=== PATIENT | male | born 1955 | race Two or more races ===

== ENCOUNTER → 2017-07-30 | Emergency (ER) | payer OTHER ==
[~2017-07-30] MED LIST: LIPITOR20 MG; LIPITOR20 MG PO; LIPITOR40 MG; PAXIL20 MG PO; PROVENTIL HFA6.7 GM IH; QVAR8.7 G1 IH; TUSSIONEX PENNKI5 ML PO
== END | disposition left against medical advice (07) ==
LOC: ER 10:53
DX: Z53.20 Procedure and treatment not carried out because of patient's decision for unspecified reasons (principal)

== ENCOUNTER → 2017-09-25 | Emergency (ER) | payer OTHER ==
[~2017-09-25] VITALS: Ht 167.6 cm; Wt 87.1 kg
[~2017-09-25] MED LIST changes: +MUCINEX DM ER1 EAC1 PO; +SYMBICORT 16010.2 GM IH; +TESSALON PERLE100 MG PO; +ZITHROMAX500 MG PO
== END | disposition home or self-care (01) ==
LOC: ER 03:53
DX: J06.9 Acute upper respiratory infection, unspecified (principal)

== ENCOUNTER → 2018-01-06 | Emergency (ER) | payer OTHER ==
[~2018-01-06] VITALS: Ht 170.2 cm; Wt 88.0 kg
== END | disposition left against medical advice (07) ==
LOC: ER 02:19
DX: Z53.20 Procedure and treatment not carried out because of patient's decision for unspecified reasons (principal)

== ENCOUNTER 2018-04-24 00:57 | Emergency (ER) | payer OTHER ==
[~2018-04-24] VITALS: Ht 167.6 cm; Wt 86.2 kg
[2018-04-24] MEDS ORDERED: ZYNCOF 20-400120 ML PO (03:16)
[2018-04-24] MEDS ORDERED: SYMBICORT 16010.2 GM IH (03:16)
[2018-04-24] MEDS ORDERED: ALBUTEROL2.5 MG/3 M IH (03:16)
== END 2018-04-24 03:25 | disposition home or self-care (01) ==
LOC: ER 00:57
DX: J40 Bronchitis, not specified as acute or chronic (principal)

== ENCOUNTER → 2019-08-23 | Emergency (ER) | payer OTHER ==
[~2019-08-23] VITALS: Ht 167.6 cm; Wt 83.9 kg
[~2019-08-23] MED LIST changes: +ALBUTEROL2.5 MG/3 M IH; +KETO10TA2 PO; +ZYNCOF 20-400120 ML PO
== END | disposition home or self-care (01) ==
LOC: ER 00:04
DX: S46.812A Strain of other muscles, fascia and tendons at shoulder and upper arm level, left arm, initial encounter (principal); X50.0XXA Overexertion from strenuous movement or load, initial encounter; Y93.73 Activity, racquet and hand sports; Y92.89 Other specified places as the place of occurrence of the external cause; Y99.8 Other external cause status

== ENCOUNTER 2019-12-20 09:24 | Outpatient (CLI) | payer OTHER | END 2019-12-20 09:38 | disposition home or self-care (01) | LOC: SONOGRAMA 09:24 → MAMO-SONO 09:45 | PROVIDERS: ATTEND Urology | DX: R97.20 Elevated prostate specific antigen [PSA] (principal) ==

== ENCOUNTER 2020-03-25 07:16 | Outpatient (CLI) | payer OTHER | END 2020-03-25 07:30 | disposition home or self-care (01) | LOC: TOM 07:16 | PROVIDERS: ATTEND Urology | DX: C61 Malignant neoplasm of prostate (principal) | CPT/HCPCS: 72194; Q9965 ==

== ENCOUNTER 2021-06-18 08:08 | Outpatient (CLI) | payer OTHER | END 2021-06-18 08:32 | disposition home or self-care (01) | LOC: NUCLEAR 08:08 | PROVIDERS: ATTEND Urology | DX: C61 Malignant neoplasm of prostate (principal) | CPT/HCPCS: 78803; A9503 ==

== ENCOUNTER 2021-06-18 11:19 | Outpatient (CLI) | payer OTHER | END 2021-06-18 11:23 | disposition home or self-care (01) | LOC: TOM 11:19 | PROVIDERS: ATTEND Urology | DX: C61 Malignant neoplasm of prostate (principal) ==

== ENCOUNTER 2021-07-09 06:09 | Outpatient (CLI) | payer OTHER | END 2021-07-09 06:11 | disposition home or self-care (01) | LOC: LAB 06:09 | PROVIDERS: ATTEND Urology | DX: I11.9 Hypertensive heart disease without heart failure (principal); C61 Malignant neoplasm of prostate ==

== ENCOUNTER 2021-08-03 11:15 | Inpatient (IN) | payer OTHER ==
[~2021-08-03] VITALS: Ht 167.6 cm; Wt 83.9 kg
[2021-08-03] MEDS ORDERED: PAXIL20 MG PO (14:42)
[2021-08-26] MEDS ORDERED: ATORVASTATIN CA10 MG PO (08:14)
== END 2021-08-28 14:25 | disposition home or self-care (01) | DRG 708 ==
LOC: SURH 08-05 11:45 → O/R 08-26 05:30 → SURH 08-26 05:30 → O/R 08-26 10:03 → SURH 08-26 11:45
PROVIDERS: ADMIT Urology; ATTEND Urology
PROC: 07TC0ZZ Resection of Pelvis Lymphatic, Open Approach (ICD-10-PCS; 2021-08-26)
PROC: 0VT30ZZ Resection of Bilateral Seminal Vesicles, Open Approach (ICD-10-PCS; 2021-08-26)
PROC: 0VT00ZZ Resection of Prostate, Open Approach (ICD-10-PCS; principal; 2021-08-26 07:00)
DX: C61 Malignant neoplasm of prostate (principal); Z20.822 Contact with and (suspected) exposure to COVID-19

== ENCOUNTER 2021-09-15 03:11 | Emergency (ER) | payer OTHER ==
[~2021-09-15] VITALS: Ht 167.6 cm; Wt 83.0 kg
[~2021-09-15 03:11] MED LIST changes: +ATORVASTATIN CA10 MG PO
== END 2021-09-15 05:10 | disposition home or self-care (01) ==
LOC: ER 03:11
DX: N39.0 Urinary tract infection, site not specified (principal); R33.9 Retention of urine, unspecified

== ENCOUNTER 2021-09-20 14:22 | Emergency (ER) | payer OTHER ==
[~2021-09-20] VITALS: Ht 167.6 cm; Wt 83.0 kg
== END 2021-09-20 16:19 | disposition home or self-care (01) ==
LOC: ER 14:22
DX: Z46.6 Encounter for fitting and adjustment of urinary device (principal)

== ENCOUNTER 2021-09-26 14:55 | Emergency (ER) | payer OTHER ==
[~2021-09-26] VITALS: Ht 167.6 cm; Wt 82.6 kg
[2021-09-26] MEDS ORDERED: LIPITOR40 M1 (15:17)
== END 2021-09-26 17:48 | disposition home or self-care (01) ==
LOC: ER 14:55
DX: R33.9 Retention of urine, unspecified (principal)

== ENCOUNTER 2021-10-02 11:55 | Emergency (ER) | payer OTHER ==
[~2021-10-02] VITALS: Ht 167.6 cm; Wt 81.6 kg
[~2021-10-02 11:55] MED LIST changes: +LIPITOR40 M1
== END 2021-10-02 14:42 | disposition home or self-care (01) ==
LOC: ER 11:55
DX: R33.9 Retention of urine, unspecified (principal)

== ENCOUNTER 2021-10-28 07:28 | Outpatient (CLI) | payer OTHER | END 2021-10-28 07:37 | disposition home or self-care (01) | LOC: LAB 07:28 | PROVIDERS: ATTEND Urology | DX: I10 Essential (primary) hypertension (principal); C61 Malignant neoplasm of prostate; D68.8 Other specified coagulation defects ==

== ENCOUNTER 2021-11-04 09:30 | Day surgery (SDC) | payer OTHER | END 2021-11-04 17:45 | disposition home or self-care (01) | LOC: CIR.AMB 09:30 | PROVIDERS: ATTEND Urology | DX: N32.0 Bladder-neck obstruction (principal); R31.0 Gross hematuria; R33.9 Retention of urine, unspecified; Z86.16 Personal history of COVID-19; F32.A Depression, unspecified; Z20.822 Contact with and (suspected) exposure to COVID-19 ==

== ENCOUNTER → 2022-02-24 | Outpatient (CLI) | payer OTHER | END | disposition home or self-care (01) | LOC: NUCLEAR 07:16 | PROVIDERS: ATTEND Urology | DX: C61 Malignant neoplasm of prostate (principal); R31.0 Gross hematuria; R33.9 Retention of urine, unspecified; Q64.39 Other atresia and stenosis of urethra and bladder neck | CPT/HCPCS: 78306; A9503 ==

== ENCOUNTER 2023-10-03 07:20 | Outpatient (CLI) | payer OTHER | END 2023-10-03 07:21 | disposition home or self-care (01) | LOC: LAB 07:20 | PROVIDERS: ATTEND Urology | DX: C61 Malignant neoplasm of prostate (principal) ==